=== PATIENT | female | born 1960 | race Caucasian/White ===

== ENCOUNTER 2020-12-01 19:15 | Emergency (ER) | payer BC ==
--- OUTSIDE RECORDS SUMMARY | 2020-12-01 19:18 | XMS REPORT | Continuity of Care Document ---
:1960 Author Organization [facility] t Address [address] [place] [address] Care Team Providers Name Role Phone Amberly GALAVIZ Primary Care Physician Unavailable Latanya COWAN Attending Clinician LATANYA Attending Clinician Unavailable Amberly GALAVIZ Attending Clinician Unavailable Amberly Galaviz MD Attending Clinician Payers Payer Name Policy Type Policy Number Effective Date Expiration Date Phill VASQUEZ CROSS BLUE [id number] MD Gaurang jefferson [facility] PPO 00:00:00 [id number] 08/2014-PresentPPO Problems Condition Condition Condition Status Onset Resolution Last Treating Co mments Source Name Details Category Date Date Treatment Clinician Date Lichen Lichen Disease Active sclerosus sclerosus 11-09 Gaurang rso et et 00:00: n atrophicus atrophicus 00 Atrophic Atrophic Disease Active vaginitis vaginitis 04-14 Gaurang rso 00:00: n 00 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 2 Gaurang rso 00:00: n 00 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-10 An derso elial elial 00:00: n neoplasia neoplasia 00 grade 3 grade 3 Allergies, Adverse Reactions, Alerts Allergy Allergy Status Severity Reaction(s) Onset Inactive Treating Comm ents Source Name Type Date Date Clinician Darvocet Adverse Active face [facility]ells [facility] MSG Adverse Active migraine [facility] Isosorbi Adverse Active migraine [facility] Flagyl Adverse Active vomiting [facility] Cymbalta Adverse Active can't [facility] Reaction urinate [facility] Erythrom Adverse Active stomach [facility] ycin Reaction issue [facility] Family History Family Member Diagnosis Comments Start Date Stop Date Source Paternal grandmother Pancreatic cancer MD Hanson Natural brother -Brain cancer Maternal grandfather Lung cancer MD Hanson Maternal grandmother -Breast cancer MD Hanson Social History Social Habit Start Date Stop Date Quantity Comments Source Sex Assigned At MD Hassan on Tobacco use and 2020-06-24 2020-06-24 Never used MD Hassan on exposure 00:00:00 00:00:00 Alcohol intake 2020-06-24 2020-06-24 Current MD Hiral holm 00:00:00 00:00:00 non-drinker of alcohol (finding) Smoking Status Start Date Stop Date Source Never smoker MD Hanson Medications Ordered Filled Start Stop Current Ordering Indication Dosage Frequency Signature Comments Components Source Medication Medication Date Date Medication? Clinician (SIG) Name Name levothyroxi 2019-08 Yes levothyrox MD zaman 08-24 ine 75 mcg Hiral (SYNTHROID, 14:52: tablet n LEVOTHROID) 48 75 mcg tablet cholecalcif 2019-08 Yes 1{capsu Take 1 M D margareth, 08-24 le} capsule by Hiral vitamin D3, 14:52: mouth n (Vitamin 48 daily. D3) 50 mcg (2,000 unit) capsule multivitami 2019-08 Yes 1{tbl} Take 1 MD n 08-24 tablet by Hiral (multivitam 14:52: mouth n in) tablet 48 daily. albuterol 2019-08 Yes 3mL 3 mL. (PROVENTIL, 08-24 Andjennifer VENTOLIN) 14:50: n 2.5 mg /3 53 mL (0.083%) nebulizer solution sertraline 2019-08 Yes 100mg Take 100 MD (ZOLOFT) 1-04 mg by Anderso 100 mg 14:50: mouth. n tablet 53 cetirizine 2019-08 Yes 10mg Chew 10 mg M D (ZyrTEC) 10 1-04 as needed And erso MG chewable 14:50: for n tablet 53 allergies. beclomethas 2019-08 No 1{puff} Inhale 1 MD one (QVAR) 08-24 11-04 puff by Maycol so 80 mcg/puff 14:50: 00:00 mouth as n inhaler 53 :00 needed. levothyroxi 2019-08 No 25ug Take 25 MD ne 08-24 11-04 mcg by Anderso (SYNTHROID, 14:50: 00:00 mouth n LEVOTHROID) 53 :00 daily. 25 mcg tablet pantoprazol 2019-08 Yes TK ONE T MD e 0-13 PO D HALF Anderso (PROTONIX) 00:00: AN HOUR n 40 mg EC 00 BEFORE tablet BREAKFAST OR FIRST MEAL cholestyram Yes ine 5-27 Anderso (QUESTRAN) 00:00: n 4 g packet 00 Zofran Zofran 2018-08 Yes Na Shoemaker as needed [facility] 2-19 for [facility] clobetasol 2018-08 Yes Lichen Apply MD (TEMOVATE) 0-31 topically Gaurang rso 0.05% cream 00:00: to n 00 affected area(s) 2 (two) times a week MTH. telmisartan 2018-08 Yes TK 1 T PO M D (MICARDIS) 0-09 ONCE A DAY And erso 20 mg 00:00: n tablet 00 Augmentin Augmentin 2017-08 Yes Na Shoemaker [address] [facility] Telmisartan Telmisartan Yes Na Shoemaker [address] [facility] EpiPen EpiPen Yes Na Shoemaker not [facility] 2-[place] 2-[place] defined [facility] ProAir HFA ProAir HFA Yes Na Shoemaker [address] [facility] Telmisartan Telmisartan Yes Na Shoemaker [address] [facility] Zoloft Zoloft Yes Na Shoemaker [address] [facility] Zonisamide Zonisamide Yes Na Shoemaker [address] [facility] DuoNeb DuoNeb Yes Na Shoemaker not [facility] defined [facility] Levothyroxi Levothyroxi Yes Na Shoemaker TAKE [address] [facility] ne Sodium ne Sodium TABLET BY [facility] Omeprazole Omeprazole Yes Na Shoemaker [address] [facility] Metronidazo Metronidazo Yes Na Shoemaker [address] [facility] Qvar Qvar Yes Na Shoemaker [address] [facility] Zoloft Zoloft Yes Na Shoemaker [address] [facility] Levothyroxi Levothyroxi Yes Na Shoemaker [address] [facility] ne Sodium ne Sodium on an [facility] - empty [facility] stomach in l the Outpat[facility] morning ent Clinics Immunizations Ordered Immunization Filled Immunization Date Status Commen ts Source Name Name Jeanie SARS-CoV-2 2020-10-30 Completed Vaccination 00:00:00 Vital Signs Vital Name Observation Time Observation Value Comments Source WEIGHT 2020-06-24 08:48:36 101.1 kg WEIGHT 2020-06-24 08:48:36 101.1 kg Systolic blood pressure 2020-06-24 14:48:36 140 mm[Hg] MD Hanson Diastolic blood pressure 2020-06-24 14:48:36 72 mm[Hg] MD Hanson Heart rate 2020-06-24 14:48:36 69 /min MD Maycol montana Body temperature 2020-06-24 14:48:36 36.89 Dianne MD Daiana carter Respiratory rate 2020-06-24 14:48:36 18 /min MD Daiana carter Body weight 2020-06-24 14:48:36 101.1 kg MD Maycol montana BMI 2020-06-24 14:48:36 41.81 kg/m2 MD Maycol son Procedures Procedure Date / Time Performed Performing Clinician [facility] e CYTOLOGY HEAD IRRIGATOR INTERPRETATION 2020-06-24 15:51:00 Casey Jean MD CYTOLOGY HPV 16/18 GENOTYPING 2020-06-24 15:51:00 Casey Jean MD AND HIGH RISK POOL Encounters Start End Encounter Admission Attending Care Care Encounter Source Date/Time Date/Time Type Type Clinicians Facility Department ID 2020-10-30 2020-10-30 Outpatient ELLEN PELAEZ MDA MDA [id number] 11:13:25 11:13:25 DANYELLE holm 2020-10-28 2020-10-28 Outpatient [facility] [id number] [facility] 2020-06-24 2020-06-24 Outpatient ELLEN GALAVIZ MDA MDA [id number] 08:44:24 10:01:17 ROEL holm 2020-06-03 2020-06-03 Outpatient [facility] [id number] [facility] 2020-04-03 2020-04-03 [facility] [id number] [facility] 14:20:00 14:20:00 t [employer] [facility] l Medicine Outpati ent Clinics 2019-12-26 2019-12-26 [facility] [id number] 14[facility]40:00 14:40:00 t [employer] [facility] Medicine Outpat[facility] ent Clinics 2019-10-16 2019-10-16 [facility] [id number] [facility] 15:42:00 15:42:00 t [employer] [facility] Medicine Outpati ent Clinics 2019-08-17 2019-08-17 [facility] [id number] 14:55:00 14:55:00 t [employer] [facility] Medicine l Medicine Outpati ent Clinics 2019-08-08 2019-08-08 [facility] [id number] 09:40:00 09:40:00 t [employer] [facility] Medicine l Medicine Outpati ent Clinics 2019-07-17 2019-07-17 [facility] [id number] 09:24:00 09:24:00 t tribalX s - Drive [facility] Outpati ent Clinics 2019-06-28 2019-06-28 [facility] [id number] [address] 13:00:00 13:00:00 t [employer] - [employer] [facility] Outpati ent Clinics 2019-05-29 2019-05-29 [facility] [id number] 15:34:00 15:34:00 t [employer] - [employer] [facility] Medicine Outpati ent Clinics 2018-11-21 2018-11-21 [facility] [id number] 09:20:00 09:20:00 t [employer] - [employer] [facility] Outpati ent Clinics 2018-08-23 2018-08-23 [facility] [id number] 08:15:00 08:15:00 t [employer] - [employer] [facility] Outpati ent Clinics 2018-07-16 2018-07-16 [facility] [id number] 15:15:00 15:15:00 t [employer] [facility] Outpati ent Clinics 2018-05-14 2018-05-14 [facility] [id number] 08:15:00 08:15:00 t [employer] [facility] Results Test Description Test Time Test Comments Results Result Comments Source Cytology HPV 16/18 Genotyping and High Risk Pool 2020-07-02 21:47:00 Test Item Value Reference Range Interpretation Comme nts HPV Type 16 (test code = Negative Negative, Indeterminate, 9853) Invalid HPV Type 18 (test code = Negative Negative, Indeterminate, 9854) Invalid HPV High Risk Non-16/18 Negative Negative, Indeterminate, (test code = 9855) Invalid Informational Points (test The bjorn HPV Test (Aisha code = 9852) diagnostics, [place], [place]) is a qualitative in vitro diagnostic test for the detection of Human Papillomavirus in cervical specimens collected in PreservCyt Solution or SurePathTM Preservation Fluid. The test utilizes amplification of target DNA by the Polymerase Chain Reaction (PCR) and nucleic acid hybridization for the detection of 14 high-risk (HR) HPV types in a single analysis. The test specifically identifies types HPV16 and HPV18 while concurrently detecting the other high risk types (31, 33, 35, 39, 45, 51, 52, 56, 58, 59, 66, and 68). The performance characteristics of this test were validated and determined by the [facility] cytology laboratory. These validation analyses have confirmed the accurate performance of the assay of the scarfing machine operator s stated limit of detection for the target of the test in various specimen types. The [facility] cytology laboratory is authorized under Clinical Laboratory Improvement Amendments (CLIA) to perform high-complexity testing. The [facility] Department of Pathology is accredited by the [employer] (CAP). MD HansonCytology HEAD IRRIGATOR [id number] 14:21:00 Test Item Value Reference Range Interpretation Comments Gross Description [id number] (test code = [id number]) PdUiY1yZIjIHFizIWab2N3O XhajKCrGiFFgrlaaCl1c8xl M5qfux2lUO2fFhVjKGOwRDA nDIKswqQaAFBahVLvRK7zrz GJg76pqrv8z5nlZPtoeM5uL JBqLWHdxJAsi9F1WRippNWd NHFUs7VqwNNxXA7ubbc2g4j pJRhhn1jpz8QxIgVhKVVfMM XiTCYdwfDoUGQfiBLyPC4ao pAnevp5i6abHURrYh9uUSPg mwbfQ2zerySidKTbVdThqEM mA508urkqtvv8x8grSZPmCt 0nzShgI6gbjoQeaJLfJpCfq TIgVHJveSBNaWNybyAxcHQ7 rRpzSxXqEJVgx16uxsbzI2f ksgIeuGYxVqYlrDZkG8wdXq 7qT656FJTbNJvpp2zng7QqN mNoYXJzZXQwXGZwcnEyIFNl Z45aJZBGH647IHXfIQBaHJG iy1usf2jiJ1mjzgJpbQNeAz JnrBMyTQVsSMx4sG9Wl4aqd 2pjkcSsfDE3YWOqAEWoO7Jj HA2vBFJbcKXiO5miOJBgHEv rugGctkI0KGXxuECaEUsjim FcHgHhE2AdRQ1kIRrqfJLxE yL4ZLNfVSO8XZxwLNZfWPvo Hkv8FTK8Z8ugFTA1L2zfyeO btoQoZTAosPZ3MhwxvqEqVk ziP6JnXR18LUqzcKHxFdf3B TUoLWn5QIrmIAElZQJaMgs6 OLn4L1gxTWOlAZXjT2JxKY8 oPHJfTkw3BNVcUVylgrOlSC R9MSizOKPeSIZ5XKSvhVFeJ ra6HHVvMEW9O7azjyEztaH9 D5ufvAXlDOKtH3scQOMkGAm qS6TqUT1aBStdJqy9IDL5ZC ynhdNcETk5XSzkLCEiQQn4F ZQqdYDrBjG9QJCbKNB1MQdc hoChzeI5SYvjwBIzTKjvK7e uOQZrJHoqQ1PvSA2pVRzpFe w4BXSdLdlyhoFkUnZeFGapO SVbEfAjAYXsmMAjNqZ3DHIt ZDIzOVxncmVlbjIzOVxibHV sIxU9M6diAQXcXJThU7DwMK 6eDOUmBsh8OBQ3BYryogPbD JbdxpIcssZlFsi1END1VYq8 Pgbeh0N9lFWhxHSccMxzxxX epKZhJCsdOcWtA723YBFgCT ivAZKntdupFig3d8owQgQeU KPzxU7bZPK5pDapdlKugEXp IGwuLiB6S247JDS5ECnxWME ohtlkVIq8a8eqRlNjPLJwrI 6qAMU5yI5KOnepFZBiotdsH Ox2UEnzPPDhabrsIbU0JPua DIRbpNx1DRogCIXseyQ4Qyk tYXJndDcyMFxtYXJnYjcyMF hoNUMiGAT0JnCwJMTgo7Fxy xz8NtKvPjOxYDHNXugzpCHh XGX4YPX7PpJdTWFiCxkcYZB yVM5xwCgyxZj1sCwkTKFwmu O8kAFpZUutz8dzQAR3v0jaf hrnTRAiHDorKa4bnPIbrCfe CsDdNDSjQXl1uK10UKDqtL7 lrENgYOg5RPHizrEavFjdcT 0wUpLmYVCxFNF1omRYBMDcY QAxRWouggWaKYs5LQGxgXZh nGuxCPR7Sq8= Specimen Information c5yghLRuKAUdjTCeJsZfEZD (test code = 95301) tEWKvn2mvCVDrjFMaHhTpNr NcZnRuYmpcdWMxXGRlZmYwe 8wak120bLJdx1umNOUxOeQ7 kSSwVSRnzRSoD694QDOsQRu ap8btg1XxPOYzxUSvy5O0LO PLtrlpoCk2j5dwAwInBj0ql QKGp3VnoPDyCE3hscq8vVth P22eq6O8EbrsS4qxDHNrEXC wY9NxUG4rSKNkCvj6CMY0AB Y8WDLxZIIiB3WsAI2hYTYus WUwIDtccmVkMFxncmVlbjBc Hgk1DNS2IBN4MCZgUNElXWj kmdGaksAvCwo8OKMoCTQ5DX NqOOW2DDnyxsSikjYjLde0S EWyM243XWS0pBfyt3ybMNN6 GTWjTKYxPnZlRd1itSYfZ43 2GORbPFNITWVkeGi0UUZdlc AijkPepFORi102T502KQYoQ THnURf2QbUTZQMxutn7uN1x ADYrfx43eRameuVje47pnED yXGxpMzYwIERlZmluaXRpb2 7jDVlivTv2x2naqkHgoGYTG MUbtqw8hO2kY700EUL4JBJq KVc6EYygxBXefA7msIH5FSy xXGZzNDhcYlxzYjEwMFxzYT XjZSsvpCQpy6W1yTqgQJkpp rToJHqwUSVfzyCEBRn2u0mi VvszsmF0eGSjz5D4rCkeVTe upbXvFavsyzR3JNFae8NkGR Mnr2EoCEJdk4djHV00yNetb jCqTYBrjKPzz1ApbF3gYYH4 iDpbwatsp03tuRUtUL61eId pbmVsZXZlbDNcZnMyOFxiXH NiMTAwXHNhMTAwXHNsMFxvd AFanZ6icOF5HXzsYBqmPTUp NQlqY815MSV0GWVxPFf1JMm jdNLmeW9vjOZ8OYj4SOHzYk RcYlxzYjEwMFxzYTEwMFxzb WWmq9T7tPznXWpfsxAsSYwm PMJvmpDWLLt0o5asQXpvgcM 7gSYbi0N3qGejYCugzzSeWC nilvHcGEWbw9DhIWKrb2FcN DLhx5oqCI28kSffvxRqHEIz sAPyu4JygP0gCYH9mAyktlX pHJOsLKk8ARiqdBAjtU7enK E4BSy1MANdRKHfBiqwBdOwZ XuuASHpVVaxfZWpu5K4aJxr ZWxldmVsNlxrZWVwbiBINjt 5u5ldYBEii61uuSXfABtpWP BgbqNigfo9a4yrQZZic54vx HQwXGxpMzYwXHJpMzYwXHNi MTAwXHNhMTAwXHNsMCBCbG9 wx4P6r8TsE067YIBqXQKveB GPSHZKV652XHQtDHDvIgWuI gYrWOWWA8OVS604JQXaRIOd iTcmPFTyQGFfPPiyKO2xsRX gzCP3rEafS7HuNmj7qAxtQj JmATmrOEQegJ8aF232ULDbQ ZlgjIlqE9Q5VZGfpFbwl9Jf ZMmbDQDjnX9zL747LCOhLQx cZjJcZnMyMFxiIEtleWJvYX QuE162MBRsHHqltcN3vHSyY rJxLmAlGNb1pYYxyTd7JGei rZfsYES0QHK2Epj1C1c4kMC 4BjGiqFf9Vov1RHR4GSc4XX y9oLI8DOKibGt6IvprSVZ1F WTrVNi2zEe3AMLil6CzZMBd BCsuwZHmUQNpRo8ftSE6cDU vB199LGKrCSmwksG4rJVcVb XpYvJeEqx7NPQgJGG0FBThL EGsBeijfaWhX1JwCQSvBFad Yy77lK6tEL6kBNMrhj94qUs xgiGfLCCzIYj0WXysJPuawn C5QDUvVoNcvfAjRaFqxjKqX CNqWEAqBjTftULikt1Ku7Rg c0McIh4zrWx3d2qdcrHgQQH jHPPywYDpAJu8r0iwzuBaLK PiY6Rvu19eF550DMOyGcPaZ uIcAiGeOETDmHWwc5SsuPCm Y807JDCjNrTeqWFEPKDoTIQ kGNq7f9tsktK1TJXjQ6M1MX qYIUooGILgc4FuC577OQWaX khgmuSXh35fKQ82E959c1fu PIUhxhRvxOkRckiun4haN34 9XHBhcGVydzEyMjQwXHBhcG RthKE2WCOnNO8emudbUNqnN SxtICVsfxJ8THEwmBCpQ7Ci YDUlJT0ycdryXCD6IUofPEU oTZS0KhNkLRXdk7Sxmll7Du Vqfy5dgw22WTL7m9VyiIdeH RJ0CCR0RdBlRu0suAVmXIRm UU3yLdWlhYMsJMCaqf29kZl uGGdaiiGzlH1rVuLoUHKsmO NpTAVkEY4ikTGnZKWpxS6yt mxjXHBnYnJkcmhlYWRccGdi klJsSe8vuShyKUG8TCpnU2w dbG6tMhC3ISmhO9gpoA1iZY v3FIhusPT4IJCjiH4cNI8no nzce3dlMLxwFVwpZXQkvtU3 brA3HNDzlBNhW9WykM8wXDM pOS6batedp0teGIR0FZvaXR FbFMX4JhOlQPGxc8Fiayv6T mDrj2PbgXMmELokU06gb587 WSGpvbWkY4dsfMNfoikwrMV rlqxpTPdmlkQ1PXHkiqXpzZ ptyY9zWiYxJcJbJKjcOA1xJ TFjQ5dbaLGuFYMfEIIuK9in CiOyzX4geBwfZApgGdGcKxI hIRZRAaCDQOtmqyVlYYZ5wj LSPYBsSNDTbYM5iKCsFtLyQ AKlJQXbwUJjFMIjd24aKKO3 YWIsIFxwYXJ9 Specimen Adequacy Satisfactory for (test code = 9847) evaluation Diagnosis (test code = Negative for 9849) intraepithelial lesion or malignancy HPV Reflex for Employment Specialist/Program Manager Yes (test code = 9974) Informational Points f9mwqLLpFEJyoMSlQsAbGMT (test code = 9836) uKAZfd9hwUIRowKJmXhDmLb NcZnRuYmpcdWMxXGRlZmYwe 9epx125zHErh1ylLAQiFrJ8 fBRpWVVkmTZbY707FYYuFUg od9isz0GfCHFqiBFez0R7KH JLYUhrTMAABPc8j0hwLnLsF eJ8qBVlWHkqS1rlmtMcrEKd HLShTEu6gA56SUUvzY5jiBA xRDjishWvEtL1ZVwoJUNhIx C6VZKbyIQkAOTtL2rwSYLzP RwgKJMpEDbjtXGlEHE9pIfw s2D2bEPqtVOxpOpvWaAiKlR iDmBHl5RpVIh6kDwbN2AxCG TcXrT1eLMoMLHtZBrhDETjF BMiykA0yH13UWeoaqU4sUTy f3Vzu76xl919qM7axAOaLBT 8ZIHyQBIioNHiUVTlDKK9EV DvaSVaS5qrVGImZX4dizulV XtmTPheJNHumDH1EGSavMJp F9NmKAAmFMfiSZZxdon1YqJ rFd2taQNzrEjpRLhdk2ljg0 wxrDWxRwc3BAEyPjLqNfbpM Wkld8Kwl0mjKRUyde8dWRG2 aUItqHqwj0W9lUJoCOCbdKM uioOqZYZkGzJ4AWjjYA0xqv 74RQThDKE6nk6tzTKkbLmfw mMjmETdCFobF7NuTJTsz908 IWXrZ1IwLYPcc9G4lsIvQiH yIWSbpTS3pwQ5YBFuEAr7oT OzdqT8ulHfrBYiX1pplU7sI PDkCM9jrsbae3flNYekFBkw FEOpfKM7txA2NLDmhKTfO1A xiP1sFOBkXSyoGAIguhk6Zj VyRi5ddZEgoBmcSOdgQhuuZ WdlXHBnbmNvbnRccGduZGVj XHBsYWluXHBsYWluXGYwXGZ oZfXxhWiubQxxhS7qRaNmLs JhLZxcTG0jWNTdE3btsDWiI NMeOQVqL0qzAcXvjU3yjQqj QLfeidH9BOkfG9Uavdnak2W dS6xpRRlnY7e8j7cbO2zbdO OpKOVkU0JuRN4mckydiKLvA 3YjrCDwXQW9JranQ0PyrD2j ZhJhv5HrxaNsORJeqaPjUQK aQNZuAFdyXBJhc7ZdzGt1FA WaYKDke8EztKGpYXVbEL6ev cVvedVpyDBrdKJmt7lfwfSm ADTmiXpbToXhtD4jdEAdIX3 syFJyoJWdk1W9ADguYIRvj3 0vIXKvSUt6kBNkCPKcdCI4c JGjnpZaPdQbwXTwYD6vDFEa c5HwEFMmCPHqggXnncYiOCR rASX3g6dzuCozbsR8dKTsVT Hgp7WrKX9iRCV3mtBvfzPaM 4plgixaTOwuJCN5ZR8jPUOq xcSOg13rHJXjp7OcACDcpS7 leXRmIDkfqsYtrRT8OPrzsm LfVyDwymThVTNoxK4bXORiL G7uFULlsyMcdt1xvuJhMEEh HXSqH5HwkwknrTtoidJaXCF fdj8ctmXuCRB9VKVWOF2FFZ RkVSSyb58jNEIarNendX3en PCyadUfNWQcz7JvuP4tpVWG CELdV6iaWS5tQFvsh6KzqPE mxKEufUA2BAFcs2UbExNdmb IyhYAmiCTmR8WuqAgfX0xqQ YTtHVFmdjIleBAlw3XwVQQv zJD4wDFlSX3XIiJCw08eUWG jHPHQsvCxHHYyyBzrkFW7yp K7sQ9qZpWldSgdfU6vXfIkS mVzTvdkMQ0sLFFzP5qjkGFe MVPvVHMgB6wpSuPwaD9jhIk mMlxmczIyXHBhcn0= MD Hanson
[2020-12-01] MEDS ORDERED: HYDROCODONE/APAP 5/325 MG TAB ONE (20:13)
--- NOTE | 2020-12-01 20:51 | EDPHYS ---
Physician Documentation [facility] Name: Jigna Robledo Age: 60 yrs Sex: Female : 1960 Arrival Date: 12/01/2020 Time: 19:17 Bed 6 Private MD: JENIFFER Physician Barry Hanson HPI: 12/01 19:53 This 60 yrs old Female presents to ER via Ambulatory with complaints of Leg kb Swelling, Left leg. 19:54 The patient presents with pain, swelling, tenderness. The complaints affect the left kb calf and posterior aspect of left knee. Context: the patient can fully bear weight, the patient is able to ambulate. Onset: The symptoms/episode began/occurred 3 week(s) ago. Modifying factors: The symptoms are alleviated by nothing. the symptoms are aggravated by nothing. Associated signs and symptoms: Pertinent positives: calf tenderness, swelling, Pertinent negatives fever, nausea, numbness, rash, tingling, vomiting, warmth, weakness. Treatment prior to arrival includes: no previous treatment. Severity of symptoms: At their worst the symptoms were moderate, in the emergency department the symptoms are unchanged. The patient has not experienced similar symptoms in the past. The patient has not recently seen a physician. Pt reports she got the [employer] COVID vaccine 1 month ago, started having pain behind left knee and in left calf 3 weeks ago. Pt had to travel to [place] and drive back to bring her mother back here. She heard about the J\T\J shot causing DVTs so she wanted to come and make sure that isn't what was going on.. Historical: - Allergies: 19:32 Darvocet-N 100; ca1 19:32 Erythromycin; ca1 19:32 Flagyl; ca1 - PMHx: 19:32 Hypertension; High Cholesterol; Thyroid problem; Kwame's Esophagus; ca1 - PSHx: 19:32 Carpal Tunnel Repair; Hysterectomy; Cholecystectomy; Foot surgery; ca1 - Immunization history:: Client reports receiving the 1st dose of the Covid vaccine, Pneumococcal vaccine is up to date, Flu vaccine is up to date. - Social history:: Smoking status: Patient denies any tobacco usage or history of. ROS: 19:52 Constitutional: Negative for fever, chills, and weight loss, Respiratory: Negative for kb shortness of breath, cough, wheezing, and pleuritic chest pain, Skin: Negative for injury, rash, and discoloration, Neuro: Negative for headache, weakness, numbness, tingling, and seizure. 19:52 MS/extremity: Positive for pain, swelling, tenderness, of the posterior aspect of left knee and left calf. Exam: 19:52 Constitutional: This is a well developed, well nourished patient who is awake, alert, kb and in no acute distress. Head/Face: Normocephalic, atraumatic. Respiratory: Respirations even and unlabored. No increased work of breathing, no retractions or nasal flaring. Skin: Warm, dry with normal turgor. Normal color. Neuro: Awake and alert, GCS 15, oriented to person, place, time, and situation. Moves all extremities. Normal gait. 19:52 Musculoskeletal/extremity: Extremities: grossly normal except: noted in the posterior aspect of left knee: pain, tenderness, ROM: intact in all extremities, Circulation is intact in all extremities. Sensation intact. Weight bearing: able to fully bear weight. Vital Signs: 19:27 BP 157 / 85; Pulse 67; Resp 18 S; Temp 97.8(TE); Pulse Ox 99% on R/A; Weight 99.79 kg ca1 (R); Height 5 ft. 2 in. (157.48 cm) (R); Pain 4/10; 20:55 BP 132 / 68; Pulse 60; Resp 16; Pulse Ox 98% ; rr5 19:27 Body Mass Index 40.24 (99.79 kg, 157.48 cm) ca1 MDM: 19:32 Patient medically screened. kb 19:51 Data reviewed: vital signs, nurses notes. Data interpreted: Pulse oximetry: on room air kb is 99 %. Interpretation: normal. Counseling: I had a detailed discussion with the patient and/or guardian regarding: the historical points, exam findings, and any diagnostic results supporting the discharge/admit diagnosis, radiology results, the need for outpatient follow up, a family practitioner, to return to the emergency department if symptoms worsen or persist or if there are any questions or concerns that arise at home. 12/01 19:33 Order name: US Extremity Venous Unilateral Ltd kb Administered Medications: 20:00 Drug: [place] (HYDROcodone-acetaminophen) 5 mg-325 mg 1 tabs Route: PO; ea 20:57 Follow up: Response: No adverse reaction; RASS: Alert and Calm (0) rr5 Disposition: 12/02 06:42 Co-signature as Attending Physician, Barry Hanson MD I agree with the assessment and kurtis plan of care. Disposition: 12/01/20 20:51 Discharged to Home. Impression: Pain in left lower leg. - Condition is Stable. - Discharge Instructions: Musculoskeletal Pain. - Prescriptions for Cyclobenzaprine 10 mg Oral Tablet - take 1 tablet by ORAL route every 8 hours As needed; 21 tablet. - Medication Reconciliation Form, Thank You Letter, Antibiotic Education, Prescription Opioid Use form. - Follow up: Emergency Department; When: As needed; Reason: Worsening of condition. Follow up: Private Physician; When: 2 - 3 days; Reason: Recheck today's complaints, Continuance of care, Re-evaluation by your physician. Signatures: Dispatcher [employer] [facility] Tammy Menezes, DUKE MARKHAM-Barry Mondragon MD MD cha Antunez, Elena, RN Steve Silver ea RN RN rr5 Oliva Ham RN RN ca1 Corrections: (The following items were deleted from the chart) 12/01 20:57 20:51 12/01/2020 20:51 Discharged to Home. Impression: Pain in left lower leg. rr5 Condition is Stable. Forms are Medication Reconciliation Form, Thank You Letter, Antibiotic Education, Prescription Opioid Use. Follow up: Emergency Department; When: As needed; Reason: Worsening of condition. Follow up: Private Physician; When: 2 - 3 days; Reason: Recheck today's complaints, Continuance of care, Re-evaluation by your physician. kb
--- NOTE | 2020-12-01 20:51 | ER ---
Nurse's Notes [facility] Name: Jigna Robledo Age: 60 yrs Sex: Female : 1960 Arrival Date: 12/01/2020 Time: 19:17 Bed 6 Private MD: Diagnosis: Pain in left lower leg Presentation: 12/01 19:27 Chief complaint: Patient states: L leg swelling and pain x 1.5 week. Started after J\T\J ca1 Covid Vaccine and Long drive from [facility] to [place]. Coronavirus screen: Client denies travel out of the [place] in the last 14 days. Ebola Screen: Patient negative for fever greater than or equal to 101.5 degrees Fahrenheit, and additional compatible Ebola Virus Disease symptoms Patient denies exposure to infectious person. Patient denies travel to an Ebola-affected area in the 21 days before illness onset. No symptoms or risks identified at this time. Initial Sepsis Screen: Does the patient meet any 2 criteria? No. Patient's initial sepsis screen is negative. Does the patient have a suspected source of infection? No. Patient's initial sepsis screen is negative. Risk Assessment: Do you want to hurt yourself or someone else? Patient reports no desire to harm self or others. Onset of symptoms was December 01, 2020. 19:27 Method Of Arrival: Ambulatory ca1 19:27 Acuity: TOMY 4 ca1 Historical: - Allergies: 19:32 Darvocet-N 100; ca1 19:32 Erythromycin; ca1 19:32 Flagyl; ca1 - PMHx: 19:32 Hypertension; High Cholesterol; Thyroid problem; Kwame's Esophagus; ca1 - PSHx: 19:32 Carpal Tunnel Repair; Hysterectomy; Cholecystectomy; Foot surgery; ca1 - Immunization history:: Client reports receiving the 1st dose of the Covid vaccine, Pneumococcal vaccine is up to date, Flu vaccine is up to date. - Social history:: Smoking status: Patient denies any tobacco usage or history of. Screenin:36 Abuse screen: Denies threats or abuse. Nutritional screening: No deficits noted. ea Tuberculosis screening: No symptoms or risk factors identified. Fall Risk None identified. Assessment: 19:40 General: Appears in no apparent distress. Behavior is calm, cooperative, appropriate ea for age. Pain: Complains of pain in left leg. Neuro: Level of Consciousness is awake, alert, obeys commands, Oriented to person, place, time. Cardiovascular: Patient's skin is warm and dry. Respiratory: Airway is patent Respiratory effort is even, unlabored, Respiratory pattern is regular, symmetrical. Derm: edema noted to left ankle Reports pain in left leg that radiates down. 20:56 Reassessment: Patient appears in no apparent distress at this time. Patient is alert, rr5 oriented x 3, equal unlabored respirations, skin warm/dry/pink. discharge instruction given and explained without complaints made. Vital Signs: 19:27 BP 157 / 85; Pulse 67; Resp 18 S; Temp 97.8(TE); Pulse Ox 99% on R/A; Weight 99.79 kg ca1 (R); Height 5 ft. 2 in. (157.48 cm) (R); Pain 4/10; 20:55 BP 132 / 68; Pulse 60; Resp 16; Pulse Ox 98% ; rr5 19:27 Body Mass Index 40.24 (99.79 kg, 157.48 cm) ca1 ED Course: 19:17 Patient arrived in ED. bp1 19:30 Triage completed. ca1 19:32 Tammy Menezes FNP-C is PHCP. kb 19:32 Barry Hanson MD is Attending Physician. kb 19:32 Arm band placed on right wrist. ca1 19:36 Mihaela Gordon, RANDI is Primary Nurse. ea 19:36 Patient has correct armband on for positive identification. Bed in low position. Call ea light in reach. Side rails up X2. 20:55 US Extremity Venous Unilateral Ltd In Process Unspecified. EDMS 20:56 No provider procedures requiring assistance completed. Patient did not have IV access rr5 during this emergency room visit. Administered Medications: 20:00 Drug: [place] (HYDROcodone-acetaminophen) 5 mg-325 mg 1 tabs Route: PO; ea 20:57 Follow up: Response: No adverse reaction; RASS: Alert and Calm (0) rr5 Outcome: 20:51 Discharge ordered by . kb 20:56 Discharged to home ambulatory, with family. rr5 20:56 Condition: stable 20:56 Discharge instructions given to patient, Instructed on discharge instructions, follow up and referral plans. medication usage, Demonstrated understanding of instructions, follow-up care, medications, Prescriptions given X 1. 20:57 Patient left the ED. rr5 Signatures: Dispatcher [employer] EDMS Tammy Menezes, REPORT DEVELOPER-C REPORT DEVELOPER-Mihaela Sanders RN RN Steve Quijano RN RN rr5 Oliva Ham RN RN Judy Virgen [facility]
[2020-12-01 21:06] VITALS: TEMP 97.8
[2020-12-01 21:07] VITALS: BP 132/68; O2SAT 98
--- NOTE | 2020-12-01 21:30 | RAD REPORT ---
EXAM DESCRIPTION: US - Extremity Venous Uni Ltd - 12/01/2020 8:55 pm CLINICAL HISTORY: PAIN COMPARISON: None. TECHNIQUE: Real-time sonographic evaluation of the left lower extremity deep venous system was perfo rmed. FINDINGS: Normal compressibility, flow augmentation, phasic flow and spontaneous flow are identified in the left lower extremity common femoral, superficial femoral, popliteal and posterior tibial vein s. No intraluminal filling defects seen. IMPRESSION: No DVT in the left lower extremity.
== END 2020-12-01 20:57 | disposition home or self-care (01) ==
LOC: ER 19:15
DX: M79.662 Pain in left lower leg (principal); R22.42 Localized swelling, mass and lump, left lower limb; I10 Essential (primary) hypertension; E78.00 Pure hypercholesterolemia, unspecified; K22.70 Barrett's esophagus without dysplasia
CPT/HCPCS: 93971; 99283

== ENCOUNTER → 2023-10-17 | Emergency (ER) | payer BC ==
[~2023-10-17] MED LIST: Levofloxacin500mg IV 500 MG/100 ML BAG IV ONE; NA CHLORIDE 0.9% 1,000 ML ONE; ONDANSETRON 4 MG/2 ML VIAL ONE
--- OUTSIDE RECORDS SUMMARY | 2023-10-17 10:21 | XMS REPORT | Clinical Summary ---
Author Name Unknown Organization [facility] [place] Address [address] [place] [address] Care Team Providers Care Mate First Name Role Phone Mylene Garcia MD Primary Care Provider [phone] Mario Mcdaniel MD Unavailable Unava ilable Mario Mcdaniel MD Unavailable Unava ilable Mylene Garcia MD Unavailable [phone] Kriss Guerra MD Unavailable Mary Sandra CHAIR POST MACHINE OPERATOR Unavailable [phone] Ruben Sauer CHAIR POST MACHINE OPERATOR Unavailable [phone] Allergies Active Allergy Reactions Criticality Noted Date Comments Celecoxib 09/14/2015 Codeine Sulfate 09/14/2015 Egg White Low 06/24/2020 Erythromycin 09/14/2015 Metronidazole 09/14/2015 Monosodium Glutamate 09/14/2015 Propoxyphene N-Acetaminophen 016 Medications Medication Sig Dispensed Refills Start Date End Date Status albuterol (PROVENTIL,VENTOLIN ) 2.5 mg /3 mL (0.083%) nebulizer solution 3 mL. 0 Active sertraline (ZOLOFT) 100 mg tablet Take 100 mg by mouth. 0 Active cetirizine (ZyrTEC) 10 MG chewable tablet Chew 10 mg as needed for allergies. 0 Active telmisartan (MICARDIS) 20 mg tablet TK 1 T PO ONCE A DAY 0 05/29/2019 Acti ve clobetasol (TEMOVATE) 0.05% creamIndications:Liana michel Apply topically to affected area(s) 2 (two) times a week MTH. 30 g 6 06/20/2019 Active cholestyramine (QUESTRAN) 4 g packet 0 01/15/2020 Active levothyroxine (SYNTHROID, LEVOTHROID) 75 mcg tablet levothyroxine 75 mcg tablet 0 Active pantoprazole (PROTONIX) 40 mg EC tablet TK ONE T PO D HALF AN HOUR BEFORE BREAKFAST OR FIRST MEAL 0 06/02/2020 Active cholecalciferol, vitamin D3, (Vitamin D3) 50 mcg (2,000 unit) capsule Take 1 capsule by mouth daily. 0 Active multivitamin (multivitamin) tablet Take 1 tablet by mouth daily. 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 015 Immunizations Name Administration Dates Next Due [employer] SARS-CoV-2 Vaccination 10/30/2020 Surgical History Surgery Date Site/Laterality Comments LAPAROSCOPIC CHOLECYSTECOMY 08/21/2013 - 08/20/2014 FOOT SURGERY 08/21/1970 - 08/20/1971 Bilateral Also in 2002 and 2003 TONSILLECTOMY KNEE SURGERY 08/21/2013 - 08/20/2014 Left TOTAL ABDOMINAL HYSTERECTOMY W/ BILATERAL SALPINGOOPHORECTOMY 2/2 endometriosis CARDIAC CATHETERIZATION 04/21/2014 - 05/20/2014 This was normal Medical History Medical History Date Comments Diverticulitis Endometriosis Hypothyroidism Hypertension Hypercholesterolemia Sleep apnea Migraine Blood transfusion, without reported diagnosis 19 71 Rheumatoid arthritis Asthma Family History Medical History Relation Name Comments -Brain cancer Brother Lung cancer Maternal Grandfather w/o tob acco use -Breast cancer Maternal Grandmother Pancreatic cancer Paternal Grandmother Relation Name Status Comments Brother Maternal Grandfather Maternal Grandmother Paternal Grandmother Social History Tobacco Use Types Packs/Day Years Used Date Smoking Tobacco: Never Smokeless Tobacco: Never Alcohol Use Standard Drinks/Week Comments No 0 (1 standard drink = 0.6 oz pur e alcohol) Sex and Gender Information Value Date Recorded Sex Assigned at Not on file Gender Identity Not on file Sexual Orientation Not on file Obstetrics History Para Term AB IAB SAB Ectopic Multiple Livin g Live Births 2 2 2 Date Outcome GA Total Labor Labor/2nd/3rd Weight Sex Delivery Anes PTL Radha A1 A5 Name Cl in Term Term Comments 1) Menarche age 11. Menopaus e age 29. 2) Menses were heavy and irregular, LMP age 29 3) HRT: used for approximately 1 year but d/c due to headaches. Denies OCP use ever. 4) Screening: last pap smear December 2014, which revealed VAIN with HPV changes. Last mammogram December 2014, WNL. Last Colonoscopy August 2013, showed diverticulosis Plan of Treatment Health Maintenance Due Date Last Done Comments COVID-19 Vaccination ( season) 2023 10/30/2020 Care Teams Mate First Relationship Specialty Start Date End Date Mylene Garcia MD PCP - General 10/21/15 Mario Mcdaniel MD PCP - External Referring 01/19/15 Mario Mcdaniel MD PCP - External Follow Up A 01/21/15 Mylene Garcia MD [facility] [place] [address] Physician 10/28/15 Kriss Guerra MD [address] [place] [id number] Physician 10/28/15 Mary Sandra APRN [facility] [place] [address] Nurse Practitioner 10/28/15 Ruben Sauer APRN [address] [place] [address] [id number] Nurse Practitioner 10/28/15
[2023-10-17 10:40] LABS: Absolute Lymphocytes (CBC) 0.6 K/uL (0.7-4.9); Hematocrit 44.3 % (36.0-45.0); Lymphocytes % 7.2 % (15.3-44.8); MCV 94.9 fL (80-100); Platelets 244 thou/uL (152-406); RBC Red Blood Cell Count 4.67 M/uL (3.86-4.86)
[2023-10-17 11:02] LABS: ALT/SGPT 30 U/L (13-56); AST/SGOT 24 U/L (15-37); Albumin 4.1 g/dL (3.4-5.0); Alkaline Phosphatase 108 U/L (45-117); BUN Blood Urea Nitrogen 20 mg/dL (7-18); Bicarbonate 26 mEq/L (21-32); Bilirubin Total 0.8 mg/dL (0.2-1.0); Glomerular Filtration Rate 76 ml/min (=/>90); Glucose Level 139 mg/dL (74-106); Lipase 25 U/L (13-75); Potassium 3.8 mEq/L (3.5-5.1); Sodium Level 140 mEq/L (136-145)
[2023-10-17 11:03] LABS: Troponin High Sensitivity < 3.0 pg/mL (<58.9)
--- NOTE | 2023-10-17 11:25 | RAD REPORT ---
EXAM DESCRIPTION: CT - Abdomen Pelvis W Contrast - 10/17/2023 11:12 am CLINICAL HISTORY: Abdominal pain COMPARISON: none. TECHNIQUE: Computed axial tomography of the abdomen pelvis was obtained. 100 cc Isovue-300 was admin istered intravenously. Oral contrast was not requested which limits evaluation of bowel and appendix All CT scans are performed using dose optimization technique as appropriate and may include automated exposure control or mA/KV adjustment according to patient size. FINDINGS: Mild fatty liver Spleen, pancreas, adrenal and kidneys appear unremarkable. There is no evidence of diverticulitis. Fluid within nondilated large small bowel Hysterectomy. No adnexal mass Cholecystectomy. Small umbilical hernia IMPRESSION: Fluid within nondilated large and small bowel may indicate an enteritis
[2023-10-17 11:30] LABS: Specific Gravity > 1.030 (1.005-1.030); Urine Bacteria <20 /HPF (<20); Urine Bilirubin NEGATIVE (Negative); Urine Blood 2+ (Negative); Urine Clarity Extremely Turbid (Clear); Urine Color Yellow (Yellow); Urine Crystals Unidentified Few /HPF (None Seen); Urine Glucose NEGATIVE (Negative); Urine Mucus 3+ /HPF (None Seen); Urine Protein TRACE (Negative); Urine RBC 21-50 /HPF (None Seen); Urine Urobilinogen Normal (Normal); Urine WBC Clump Rare /HPF (None Seen); Urine pH 5.5 (5.0-7.0)
[2023-10-17 11:31] LABS: Blood Morphology Comment NOT SEEN (NOT SEEN); Platelet Estimate ADEQ; White Blood Cell Scan OK (OK)
--- NOTE | 2023-10-17 11:55 | ER ---
Nurse's Notes [facility] Name: Jigna Robledo Age: 63 yrs Sex: Female : 1960 Arrival Date: 10/17/2023 Time: 10:19 Bed 15 Private MD: Diagnosis: Gastroenteritis, diarrhea, dehydration Presentation: 10/17 10:22 Chief complaint: Patient states: vomiting and diarrhea that started at midnight. as6 Coronavirus screen: At this time, the client does not indicate any symptoms associated with coronavirus-19. Ebola Screen: No symptoms or risks identified at this time. Initial Sepsis Screen: Does the patient meet any 2 criteria? No. Patient's initial sepsis screen is negative. Does the patient have a suspected source of infection? No. Patient's initial sepsis screen is negative. Risk Assessment: Do you want to hurt yourself or someone else? Patient reports no desire to harm self or others. Onset of symptoms was October 17, 2023. 10:22 Method Of Arrival: Wheelchair as6 10:22 Acuity: TOMY 3 as6 Triage Assessment: 10:25 General: Appears uncomfortable, Behavior is calm, cooperative. Pain: Complains of pain as6 in abdomen. GI: Reports diarrhea, nausea, vomiting. Historical: - Allergies: 10:25 Darvocet-N 100; as6 10:25 Erythromycin; as6 10:25 Flagyl; as6 - PMHx: 10:25 elton's esophagus; High Cholesterol; Hypertension; Thyroid problem; as6 - PSHx: 10:32 ankle; Total abdominal hysterectomy; knee; Cholecystectomy; as6 - Immunization history:: Adult Immunizations up to date. - Social history:: Smoking status: Patient denies any tobacco usage or history of. Screenin:27 [facility] ED Fall Risk Assessment (Adult) Score/Fall Risk Level 0 - 2 = Low Risk. Abuse iw screen: Denies threats or abuse. Denies injuries from another. Nutritional screening: Has had N/V for 3 or more days. Tuberculosis screening: No symptoms or risk factors identified. Assessment: 12:09 Reassessment: Patient appears in no apparent distress at this time. Patient and/or iw family updated on plan of care and expected duration. Pain level reassessed. Patient is alert, oriented x 3, equal unlabored respirations, skin warm/dry/pink. discharge pending antibiotic completion. 13:20 GI: Abdomen is non-distended. ap3 Vital Signs: 10:22 BP 127 / 78; Pulse 115; Resp 18 S; Temp 99.1(TE); Pulse Ox 98% on R/A; Weight 93.44 kg as6 (R); Height 5 ft. 2 in. (R); Pain 7/10; 13:04 BP 133 / 63; Pulse 99; Resp 16; Temp 98.4; Pulse Ox 97% on R/A; iw 10:22 Body Mass Index 37.68 (93.44 kg, 157.48 cm) as6 10:22 Pain Scale: Adult as6 ED Course: 10:21 Patient arrived in ED. mg5 10:22 Arm band placed on. as6 10:25 Triage completed. as6 10:27 Varun Negron MD is Attending Physician. sp3 10:33 Inserted saline lock: 20 gauge in right antecubital area, using aseptic technique. as6 Blood collected. 11:14 CT Abd/Pelvis - IV Contrast Only In Process Unspecified. EDMS 12:02 Jennifer Eugene, RN is Primary Nurse. iw 13:20 No provider procedures requiring assistance completed. IV discontinued, intact, ap3 bleeding controlled, No redness/swelling at site. Pressure dressing applied. 13:21 Provided Education on: discharge instructions. ap3 13:21 Patient has correct armband on for positive identification. Bed in low position. Call ap3 light in reach. Side rails up X 1. Administered Medications: 10:53 Drug: NS 0.9% IV 1000 ml IV at 1 bolus Per protocol; 1000 mL bolus Route: IV; Rate: 1 as6 bolus; Site: right antecubital; 13:13 Follow up: IV Status: Completed infusion; IV Intake: 1000ml ap3 10:53 Drug: Ondansetron IVP 4 mg IVP once; over 2 minutes Route: IVP; Site: right antecubital;as6 13:14 Follow up: Response: No adverse reaction ap3 12:09 Drug: levofloxacin IVPB 500 mg 100 ml IVPB once over 60 mins Volume: 100 ml; Route: ld1 IVPB; Infused Over: 60 mins; Site: right antecubital; 13:13 Follow up: IV Status: Completed infusion ap3 Medication: 13:21 VIS not applicable for this client. ap3 Intake: 13:13 IV: 1000ml; Total: 1000ml. ap3 Outcome: 11:55 Discharge ordered by . sp3 13:21 Discharged to home ambulatory, with family, ap3 13:21 Condition: good 13:21 Discharge instructions given to patient, family, Instructed on discharge instructions, follow up and referral plans. medication usage, Demonstrated understanding of instructions, follow-up care, medications, Prescriptions given X 2, 13:21 Patient left the ED. ap3 Signatures: Dispatcher [employer] EDJennifer Richards, RN RANDI iw Unique Diallo RN RN ap3 Herlinda Armas RN RN ld1 Varun Negron MD MD sp3 Aric Encarnacion RN RN as6 Kerry Hart 5
--- NOTE | 2023-10-17 11:55 | EDPHYS ---
Physician Documentation [facility] Name: Jigna Meena Age: 63 yrs Sex: Female : 1960 Arrival Date: 10/17/2023 Time: 10:19 Bed 15 Private MD: ED Physician Varun Negron HPI: 10/17 11:51 This 63 yrs old Female presents to ER via Wheelchair with complaints of sp3 Nausea/Vomiting/diarrhea. 11:51 63-year-old female with history of Kennedy's esophagus, hyperlipidemia, hypertension sp3 now presents to the ED with chief complaint nausea, vomiting, diarrhea for 2 to 3 days with possible foodborne illness. Patient states she has diffuse abdominal crampiness with watery diarrhea without blood or mucus. Review of systems negative for headache, fever, URI symptoms, chest pain, shortness of breath, symptoms, [employer] symptoms, rash, known sick contacts, travel history, or any other signs or symptoms on ROS at this time.. Historical: - Allergies: 10:25 Darvocet-N 100; as6 10:25 Erythromycin; as6 10:25 Flagyl; as6 - PMHx: 10:25 elton's esophagus; High Cholesterol; Hypertension; Thyroid problem; as6 - PSHx: 10:32 ankle; Total abdominal hysterectomy; knee; Cholecystectomy; as6 - Immunization history:: Adult Immunizations up to date. - Social history:: Smoking status: Patient denies any tobacco usage or history of. ROS: 11:53 Constitutional: Negative for fever, chills, and weight loss, Eyes: Negative for injury, sp3 pain, redness, and discharge, ENT: Negative for injury, pain, and discharge, Neck: Negative for injury, pain, and swelling, Cardiovascular: Negative for chest pain, palpitations, and edema, Respiratory: Negative for shortness of breath, cough, wheezing, and pleuritic chest pain, Back: Negative for injury and pain, : Negative for injury, bleeding, discharge, and swelling, MS/Extremity: Negative for injury and deformity, Skin: Negative for injury, rash, and discoloration, Neuro: Negative for headache, weakness, numbness, tingling, and seizure, Psych: Negative for depression, anxiety, suicide ideation, homicidal ideation, and hallucinations, Allergy/Immunology: Negative for hives, rash, and allergies, Endocrine: Negative for neck swelling, polydipsia, polyuria, polyphagia, and marked weight changes, 11:53 All other systems are negative, Exam: 11:53 Constitutional: This is a well developed, well nourished patient who is awake, alert, sp3 and in no acute distress. Head/Face: Normocephalic, atraumatic. Eyes: Pupils equal round and reactive to light, extra-ocular motions intact. Lids and lashes normal. Conjunctiva and sclera are non-icteric and not injected. Cornea within normal limits. Periorbital areas with no swelling, redness, or edema. Neck: Trachea midline, no thyromegaly or masses palpated, and no cervical lymphadenopathy. Supple, full range of motion without nuchal rigidity, or vertebral point tenderness. No Meningismus. Chest/axilla: Normal chest wall appearance and motion. Nontender with no deformity. No lesions are appreciated. Cardiovascular: Regular rate and rhythm with a normal S1 and S2. No gallops, murmurs, or rubs. Normal PMI, no JVD. No pulse deficits. Respiratory: Lungs have equal breath sounds bilaterally, clear to auscultation and percussion. No rales, rhonchi or wheezes noted. No increased work of breathing, no retractions or nasal flaring. Back: No spinal tenderness. No costovertebral tenderness. Full range of motion. Skin: Warm, dry with normal turgor. Normal color with no rashes, no lesions, and no evidence of cellulitis. MS/ Extremity: Pulses equal, no cyanosis. Neurovascular intact. Full, normal range of motion. Neuro: Awake and alert, GCS 15, oriented to person, place, time, and situation. Cranial nerves II-XII grossly intact. Motor strength 5/5 in all extremities. Sensory grossly intact. Cerebellar exam normal. Normal gait. Psych: Awake, alert, with orientation to person, place and time. Behavior, mood, and affect are within normal limits. 11:53 Abdomen/GI: Mild diffuse crampiness noted without peritoneal signs, rebound or guarding., 11:56 ECG was reviewed by the Attending Physician. EKG demonstrates sinus tachycardia at 104 sp3 bpm with normal intervals, normal QRS, normal ST/T-segment's without evidence of acute ischemia. Vital Signs: 10:22 BP 127 / 78; Pulse 115; Resp 18 S; Temp 99.1(TE); Pulse Ox 98% on R/A; Weight 93.44 kg as6 (R); Height 5 ft. 2 in. (R); Pain 7/10; 13:04 BP 133 / 63; Pulse 99; Resp 16; Temp 98.4; Pulse Ox 97% on R/A; iw 10:22 Body Mass Index 37.68 (93.44 kg, 157.48 cm) as6 10:22 Pain Scale: Adult as6 MDM: 10:28 Patient medically screened. sp3 11:53 Data reviewed: vital signs, nurses notes, lab test result(s), EKG, radiologic studies. sp3 ED course: 63-year-old female with PMH above now with gastroenteritis type symptoms. Consider biliary pathology, appendicitis, viral versus bacterial gastroenteritis, among others. Workup demonstrates left shift on WBC count with normal electrolytes and CT demonstrates fluid-filled cecum. Patient is allergic to Flagyl and we will place her on Levaquin with first IV dose here and discharged home on 7 days and as needed ondansetron with follow-up PCP as needed.. 10/17 10:28 Order name: CBC with Diff; Complete Time: 11:45 sp3 10/17 10:28 Order name: CMP; Complete Time: 11:45 sp3 10/17 10:28 Order name: Lipase; Complete Time: 11:45 sp3 10/17 10:28 Order name: Urinalysis w/ reflexes; Complete Time: 11:45 sp3 10/17 10:28 Order name: Troponin High Sensitivity; Complete Time: 11:45 sp3 10/17 10:44 Order name: CBC Smear Scan; Complete Time: 11:45 EDMS 10/17 10:28 Order name: CT Abd/Pelvis - IV Contrast Only; Complete Time: 11:45 sp3 10/17 10:28 Order name: EKG; Complete Time: 10:28 sp3 10/17 10:28 Order name: IV Saline Lock; Complete Time: 10:38 sp3 10/17 10:28 Order name: Labs collected and sent; Complete Time: 10:38 sp3 10/17 10:28 Order name: EKG - Nurse/Tech; Complete Time: 11:27 sp3 Administered Medications: 10:53 Drug: NS 0.9% IV 1000 ml IV at 1 bolus Per protocol; 1000 mL bolus Route: IV; Rate: 1 as6 bolus; Site: right antecubital; 13:13 Follow up: IV Status: Completed infusion; IV Intake: 1000ml ap3 10:53 Drug: Ondansetron IVP 4 mg IVP once; over 2 minutes Route: IVP; Site: right antecubital;as6 13:14 Follow up: Response: No adverse reaction ap3 12:09 Drug: levofloxacin IVPB 500 mg 100 ml IVPB once over 60 mins Volume: 100 ml; Route: ld1 IVPB; Infused Over: 60 mins; Site: right antecubital; 13:13 Follow up: IV Status: Completed infusion ap3 Disposition Summary: 10/17/23 11:55 Discharge Ordered Notes: Location: Home sp3 Condition: Stable sp3 Diagnosis - Gastroenteritis, diarrhea, dehydration sp3 Followup: sp3 - With: Private Physician - When: Upon discharge from the Emergency Department - Reason: Continuance of care Discharge Instructions: - Discharge Summary Sheet sp3 - Diarrhea, Adult sp3 Forms: - Medication Reconciliation Form sp3 - Thank You Letter sp3 - Antibiotic Education sp3 - Prescription Opioid Use sp3 - Patient Portal Instructions sp3 - Leadership Thank You Letter sp3 Prescriptions: - ondansetron 8 mg Oral Tablet,disintegrating - take 1 tablet ORAL route every 12 hours; 20 tablet; Refills: 0, Product sp3 Selection Permitted - levofloxacin 500 mg Oral tablet - take 1 tablet ORAL route once daily for 7 days; 7 tablet; Refills: 0, Product sp3 Selection Permitted Signatures: Dispatcher [employer] EDHerlinda Garcia RN RN ld1 Varun Negron MD MD sp3 Aric Encarnacion RN RN as6 Unique Diallo RN ap3
[2023-10-17 13:46] VITALS: BP 133/63; TEMP 98.4; O2SAT 97
--- NOTE | 2023-10-17 15:45 | EKG ---
Test Date: 2023-10-17 Test Time: 11:12:42 Phytopathology Teacher: MANDEEP MEASUREMENT RESULTS: Intervals: Rate: 104 TN: 150 QRSD: 82 QT: 336 QTc: 441 [place]: P: 52 TN: 150 QRS: 57 T: 29 INTERPRETIVE STATEMENTS: Sinus tachycardia Nonspecific T wave abnormality Abnormal ECG Compared to ECG 08/09/2016 08:17:24 Sinus rhythm no longer present Sinus arrhythmia no longer present T-wave abnormality still present Electronically Signed On 10-17-23 15:44:57 AIRPLANE ENGINEER by Charlie Albrecht
== END ==
LOC: ER 10:19
DX: K52.9 Noninfective gastroenteritis and colitis, unspecified (principal); E86.0 Dehydration; I10 Essential (primary) hypertension; E78.5 Hyperlipidemia, unspecified; Z88.1 Allergy status to other antibiotic agents; Z88.3 Allergy status to other anti-infective agents; Z88.5 Allergy status to narcotic agent
CPT/HCPCS: 93005; 85025; 81001; 36415; 84484; 83690; 80053; 74177; Q9967; J2405; J7030